=== PATIENT | female | born 1985 | race Caucasian/White ===

== ENCOUNTER → 2024-03-11 15:00 | Outpatient (REF) | payer OTHER, SELFPAY | LOC: PNTC 15:00 | PROVIDERS: ATTENDING PHYSICIAN Obstetrics & Gynecology | DX: O09.519 Supervision of elderly primigravida, unspecified trimester (principal); O09.819 Supervision of pregnancy resulting from assisted reproductive technology, unspecified trimester; Z87.59 Personal history of other complications of pregnancy, childbirth and the puerperium | CPT/HCPCS: 76805 ==

== ENCOUNTER → 2024-04-09 06:58 | Outpatient (REF) | payer OTHER, SELFPAY | LOC: PNTC 06:58 | PROVIDERS: ATTENDING PHYSICIAN Obstetrics & Gynecology | DX: O36.4XX0 Maternal care for intrauterine death, not applicable or unspecified (principal) | CPT/HCPCS: 76811 ==

== ENCOUNTER → 2024-05-19 06:57 | Outpatient (REF) | payer OTHER, SELFPAY | LOC: PNTC 06:57 | PROVIDERS: ATTENDING PHYSICIAN Obstetrics & Gynecology | DX: O09.529 Supervision of elderly multigravida, unspecified trimester (principal); O09.819 Supervision of pregnancy resulting from assisted reproductive technology, unspecified trimester; O26.20 Pregnancy care for patient with recurrent pregnancy loss, unspecified trimester | CPT/HCPCS: 76816 ==

== ENCOUNTER → 2024-06-16 06:59 | Outpatient (REF) | payer OTHER, SELFPAY | LOC: PNTC 06:59 | PROVIDERS: ATTENDING PHYSICIAN Obstetrics & Gynecology | DX: O99.519 Diseases of the respiratory system complicating pregnancy, unspecified trimester (principal); O09.819 Supervision of pregnancy resulting from assisted reproductive technology, unspecified trimester | CPT/HCPCS: 76816 ==

== ENCOUNTER → 2024-07-14 08:29 | Outpatient (REF) | payer OTHER, SELFPAY | LOC: PNTC 08:29 | PROVIDERS: ATTENDING PHYSICIAN Obstetrics & Gynecology | DX: O09.529 Supervision of elderly multigravida, unspecified trimester (principal); O09.819 Supervision of pregnancy resulting from assisted reproductive technology, unspecified trimester | CPT/HCPCS: 59025; 76816 ==

== ENCOUNTER → 2024-07-21 08:04 | Outpatient (REF) | payer OTHER, SELFPAY | LOC: PNTC 08:04 | PROVIDERS: ATTENDING PHYSICIAN Obstetrics & Gynecology | DX: O09.519 Supervision of elderly primigravida, unspecified trimester (principal); O09.819 Supervision of pregnancy resulting from assisted reproductive technology, unspecified trimester | CPT/HCPCS: 59025; 76815 ==

== ENCOUNTER → 2024-07-28 07:03 | Outpatient (REF) | payer OTHER, SELFPAY | LOC: PNTC 07:03 | PROVIDERS: ATTENDING PHYSICIAN Obstetrics & Gynecology | DX: O09.813 Supervision of pregnancy resulting from assisted reproductive technology, third trimester (principal); O09.523 Supervision of elderly multigravida, third trimester; O36.63X0 Maternal care for excessive fetal growth, third trimester, not applicable or unspecified | CPT/HCPCS: 59025; 76815 ==

== ENCOUNTER → 2024-08-04 07:03 | Outpatient (REF) | payer OTHER, SELFPAY | LOC: PNTC 07:03 | PROVIDERS: ATTENDING PHYSICIAN Obstetrics & Gynecology | DX: O09.529 Supervision of elderly multigravida, unspecified trimester (principal); O09.819 Supervision of pregnancy resulting from assisted reproductive technology, unspecified trimester | CPT/HCPCS: 59025; 76816 ==

== ENCOUNTER → 2024-08-11 07:02 | Outpatient (REF) | payer OTHER, SELFPAY | LOC: PNTC 07:02 | PROVIDERS: ATTENDING PHYSICIAN Obstetrics & Gynecology | DX: O09.819 Supervision of pregnancy resulting from assisted reproductive technology, unspecified trimester (principal); O09.529 Supervision of elderly multigravida, unspecified trimester | CPT/HCPCS: 59025; 76815 ==

== ENCOUNTER → 2024-08-18 07:01 | Outpatient (REF) | payer OTHER, SELFPAY | LOC: PNTC 07:01 | PROVIDERS: ATTENDING PHYSICIAN Obstetrics & Gynecology | DX: O09.529 Supervision of elderly multigravida, unspecified trimester (principal); O09.819 Supervision of pregnancy resulting from assisted reproductive technology, unspecified trimester | CPT/HCPCS: 59025; 76815 ==

== ENCOUNTER 2024-08-19 08:19 | Inpatient (IN) | payer OTHER, SELFPAY ==
[2024-08-19 08:26] VITALS: BP 117/70; BMI 28.1
[2024-08-19] MEDS: LR 1000 IV ×2 (09:00→19:57)
[2024-08-19 09:17] LABS: % Basophils 0.3 % (0-2); % Eosinophils 0.9 % (0-6); % Immature Granulocytes 0.8 % (0-0.5); % Lymphocytes 22.9 % (20.5-51.1); % Monocytes 6.8 % (1.7-9.3); % Neutrophils 68.3 % (42.2-75.2); Absolute Eosinophils 0.1 10^3/uL (0-0.7); Absolute Immature Granulocytes 0.1 10^3/uL (0-0.05); Absolute Lymphocytes 2.2 10^3/uL (1.2-3.4); Absolute Monocytes 0.7 10^3/uL (0.1-0.6); Absolute Neutrophils 6.6 10^3/uL (1.4-6.5); Hematocrit 40.5 % (37.0-47.0); Hemoglobin 14.5 g/dL (12.0-16.0); Mean Corp Hgb Conc. 35.8 g/dL (33.0-37.0); Mean Corpuscular Hgb 31.5 pg (27.0-31.0); Mean Platelet Volume 10.1 fL (7.4-10.4); Nucleated Red Blood Cells % 0 %; Platelet Count 194 10^3/uL (130-400); Red Cell Dist. Width 13.6 % (11.5-14.5); White Blood Cell Count 9.7 10^3/uL (4.8-10.8)
[2024-08-19] MEDS: CYTOTEC 25 MICROGRAM VAG (09:37)
[2024-08-19] MEDS: CYTOTEC 50 MICROGRAM PO (13:37)
[2024-08-19] MEDS: CYTOTEC PO (19:57)
[2024-08-19] MEDS: PITOCIN 30 UNITS/NSS 500 ML IV (19:57)
[2024-08-20] MEDS: FENTANYL/BUPIVACAINE 100 EPIDURAL (04:17)
[2024-08-20] MEDS: SUBLIMAZE 100 MCG EPIDURAL (04:17)
[2024-08-20] MEDS: PITOCIN 30 UNITS/NSS 500 ML IV (09:39)
[2024-08-20] MEDS: CYTOTEC PO (09:47)
[2024-08-20] MEDS: MOTRIN 600 MG PO (23:21)
[2024-08-21] MEDS: TYLENOL 650 MG PO (04:11)
[2024-08-21 04:18] LABS: Hemoglobin 13.1 g/dL (12.0-16.0)
[2024-08-21] MEDS: PRENATAL PLUS 1 TABLET PO (08:35)
[2024-08-21] MEDS: SENOKOT-S 1 TABLET PO (09:37)
[2024-08-21] MEDS: MOTRIN 600 MG PO ×2 (09:37→17:36)
[2024-08-22 11:39] LABS: Syphilis/T. pallidum Ab Reflex Negative (Negative)
== END 2024-08-22 11:22 | disposition home or self-care (01) | DRG 807 ==
LOC: LDRP 08:19
PROVIDERS: Obstetrics & Gynecology; ADMITTING PHYSICIAN Obstetrics & Gynecology
PROC: 3E033VJ Introduction of Other Hormone into Peripheral Vein, Percutaneous Approach (ICD-10-PCS; 2024-08-19)
PROC: 3E0P7VZ Introduction of Hormone into Female Reproductive, Via Natural or Artificial Opening (ICD-10-PCS; 2024-08-19)
PROC: 0KQM0ZZ Repair Perineum Muscle, Open Approach (ICD-10-PCS; 2024-08-20)
PROC: 10E0XZZ Delivery of Products of Conception, External Approach (ICD-10-PCS; 2024-08-20)
DX: O36.63X0 Maternal care for excessive fetal growth, third trimester, not applicable or unspecified (principal); Z37.0 Single live birth; Z3A.39 39 weeks gestation of pregnancy; O70.1 Second degree perineal laceration during delivery; O77.0 Labor and delivery complicated by meconium in amniotic fluid; O76 Abnormality in fetal heart rate and rhythm complicating labor and delivery
CPT/HCPCS: 88307; 36415; 85014; 85018; 85025; 86780; 86850; 86900; 86901; 87491; 87591